=== PATIENT | male | born 1985 | race Asian ===

== ENCOUNTER 2017-07-07 15:45 | Emergency (ER) | payer OTHER ==
[~2017-07-07] VITALS: Ht 175.3 cm; Wt 92.5 kg
== END 2017-07-07 18:05 | disposition home or self-care (01) ==
LOC: ED 15:45
DX: R19.7 Diarrhea, unspecified (principal)
CPT/HCPCS: 99282

== ENCOUNTER 2018-02-14 14:13 | Emergency (ER) | payer OTHER ==
[~2018-02-14] VITALS: Ht 175.3 cm; Wt 94.3 kg
[2018-02-14 16:00] VITALS: BP 124/68; TEMP 98.4
== END 2018-02-14 16:00 | disposition home or self-care (01) ==
LOC: ED 14:13
DX: K08.89 Other specified disorders of teeth and supporting structures (principal); K04.7 Periapical abscess without sinus
CPT/HCPCS: 96372; 99282; J1885

== ENCOUNTER 2018-06-14 23:50 | Emergency (ER) | payer OTHER ==
[~2018-06-14] VITALS: Ht 175.3 cm; Wt 93.0 kg
[2018-06-15 00:01] VITALS: BP 129/81; TEMP 98.7
== END 2018-06-15 00:37 | disposition home or self-care (01) ==
LOC: ED 23:50
DX: N34.2 Other urethritis (principal)
CPT/HCPCS: 96372; 99282; J0696

== ENCOUNTER 2018-08-20 13:19 | Emergency (ER) | payer OTHER ==
[~2018-08-20] VITALS: Ht 175.3 cm; Wt 93.0 kg
[2018-08-20 13:58] VITALS: BP 140/88; TEMP 98.8
== END 2018-08-20 14:00 | disposition home or self-care (01) ==
LOC: ED 13:19
DX: S39.012A Strain of muscle, fascia and tendon of lower back, initial encounter (principal); X50.1XXA Overexertion from prolonged static or awkward postures, initial encounter; Y93.H3 Activity, building and construction; Y92.89 Other specified places as the place of occurrence of the external cause
CPT/HCPCS: 99282

== ENCOUNTER 2020-10-01 14:48 | Emergency (ER) | payer OTHER ==
[~2020-10-01] VITALS: Ht 175.3 cm; Wt 93.0 kg
[2020-10-01 14:51] VITALS: BP 130/89; TEMP 97.2
== END 2020-10-01 16:07 | disposition home or self-care (01) ==
LOC: ED 14:48
DX: S43.492A Other sprain of left shoulder joint, initial encounter (principal); S93.492A Sprain of other ligament of left ankle, initial encounter; S16.1XXA Strain of muscle, fascia and tendon at neck level, initial encounter; V86.96XA Unspecified occupant of dirt bike or motor/cross bike injured in nontraffic accident, initial encounter; Y92.89 Other specified places as the place of occurrence of the external cause
CPT/HCPCS: 99283; J1885

== ENCOUNTER 2022-01-03 21:50 | Emergency (ER) | payer OTHER ==
[~2022-01-03] VITALS: Ht 175.3 cm; Wt 95.3 kg
[2022-01-03 22:10] VITALS: BP 139/63; TEMP 98.9
== END 2022-01-03 23:30 | disposition left against medical advice (07) ==
LOC: ED 21:50
DX: Z53.29 Procedure and treatment not carried out because of patient's decision for other reasons (principal)
CPT/HCPCS: 87502; 87651; 99283

== ENCOUNTER 2022-01-04 07:40 | Emergency (ER) | payer OTHER ==
[~2022-01-04] VITALS: Ht 175.3 cm; Wt 95.3 kg
[2022-01-04 07:50] VITALS: BP 132/78; TEMP 98.9
== END 2022-01-04 08:55 | disposition home or self-care (01) ==
LOC: ED 07:40
DX: S05.02XA Injury of conjunctiva and corneal abrasion without foreign body, left eye, initial encounter (principal); H10.89 Other conjunctivitis; X58.XXXA Exposure to other specified factors, initial encounter; Y92.89 Other specified places as the place of occurrence of the external cause
CPT/HCPCS: 90715; 99283

== ENCOUNTER 2022-03-09 08:25 | Emergency (ER) | payer OTHER ==
[~2022-03-09] VITALS: Ht 175.3 cm; Wt 93.0 kg
[2022-03-09 08:30] VITALS: BP 131/86; TEMP 99
[2022-03-09 09:18] LABS: PLATELET COUNT 234 K/uL (142-355); POTASSIUM 3.9 mmol/L (3.6-5.2)
[2022-03-09] MEDS ORDERED: METRONIDAZOLE500 MG PO (09:59)
== END 2022-03-09 10:27 | disposition home or self-care (01) ==
LOC: ED 08:25
PROVIDERS: Emergency Medicine
DX: K52.89 Other specified noninfective gastroenteritis and colitis (principal)
CPT/HCPCS: 36415; 80053; 81000; 83690; 85027; 87502; 96360; 96374; 96375; 99284; J2405; J3490; Q9963

== ENCOUNTER 2022-03-10 20:05 | Emergency (ER) | payer OTHER ==
[~2022-03-10] VITALS: Ht 175.3 cm; Wt 93.0 kg
[2022-03-10 20:05] VITALS: BP 129/77; TEMP 97.4
[~2022-03-10 20:05] MED LIST: METRONIDAZOLE500 MG PO
== END 2022-03-10 22:20 | disposition home or self-care (01) ==
LOC: ED 20:05
DX: K52.89 Other specified noninfective gastroenteritis and colitis (principal); R19.7 Diarrhea, unspecified
CPT/HCPCS: 99282

== ENCOUNTER 2022-05-04 21:10 | Emergency (ER) | payer OTHER ==
[~2022-05-04] VITALS: Ht 175.3 cm; Wt 101.2 kg
[2022-05-04 21:10] VITALS: TEMP 98.7
[2022-05-04 22:30] VITALS: BP 130/82
== END 2022-05-04 22:30 | disposition home or self-care (01) ==
LOC: ED 21:10
DX: S29.011A Strain of muscle and tendon of front wall of thorax, initial encounter (principal); X58.XXXA Exposure to other specified factors, initial encounter; Y92.89 Other specified places as the place of occurrence of the external cause
CPT/HCPCS: 93005; 96374; 99284; J1885

== ENCOUNTER 2022-07-26 06:21 | Emergency (ER) | payer OTHER ==
[~2022-07-26] VITALS: Ht 175.3 cm; Wt 100.7 kg
[2022-07-26 07:20] VITALS: BP 124/83; TEMP 98.8
== END 2022-07-26 07:20 | disposition home or self-care (01) ==
LOC: ED 06:21
DX: M79.18 Myalgia, other site (principal); F17.290 Nicotine dependence, other tobacco product, uncomplicated
CPT/HCPCS: 96372; 99283; J1885; J2360

== ENCOUNTER 2022-08-25 18:44 | Emergency (ER) | payer OTHER ==
[~2022-08-25] VITALS: Ht 175.3 cm; Wt 93.0 kg
[2022-08-25 18:52] VITALS: BP 137/89; TEMP 97.2
== END 2022-08-25 20:50 | disposition home or self-care (01) ==
LOC: ED 18:44
DX: N34.2 Other urethritis (principal)
CPT/HCPCS: 81002; 87490; 87590; 99282